=== PATIENT | female | born 1980 | race Caucasian/White ===

== ENCOUNTER 2018-10-17 16:32 | Emergency (ER) | payer OTHER ==
[2018-10-17] MEDS ORDERED: ONDANSETRON HCL 4 MG/2 ML VIAL ONE (16:50)
[2018-10-17] MEDS ORDERED: KETOROLAC TROMETHAMINE 30MG/ML ONE (16:50)
[2018-10-17 17:06] LABS: BASOPHILS % (AUTO) 0.6 % (0.0-5.0); EOSINOPHILS % (AUTO) 1.8 % (0.0-8.0); HEMATOCRIT 42.2 % (36-48); LYMPHOCYTES % (AUTO) 19.5 % (21.0-51.0); MEAN CORPUSCULAR HEMOGLOBIN 29.1 pg (27.0-33.0); MEAN CORPUSCULAR HGB CONC 34.1 g/dL (32.0-36.0); MEAN CORPUSCULAR VOLUME 85.5 fL (79-99); MONOCYTES % (AUTO) 6.8 % (3.0-13.0); NEUTROPHILS % (AUTO) 71.3 % (40.0-77.0); NUCLEATED RED BLOOD CELLS 0.1 % (0.0-0.19); PLATELET COUNT (AUTO) 290 K/uL (130-400); RED BLOOD CELL COUNT(AUTO) 4.93 MIL/uL (4.00-5.50); RED CELL DISTRIBUTION WIDTH 12.6 % (11.0-15.5)
[2018-10-17 17:07] LABS: APPEARANCE,URINE Clear (CLEAR); BILIRUBIN,URINE Negative (NEGATIVE); COLOR,URINE Yellow (YELLOW); GLUCOSE, URINE (UA) Negative (NEGATIVE); KETONES,URINE Trace mg/dL (NEGATIVE); LEUKOCYTE ESTERASE ,URINE Moderate (NEGATIVE); NITRATE,URINE Negative (NEGATIVE); OCCULT BLOOD,URINE Small (NEGATIVE); PH,URINE >=9.0 (5.0-8.0); PROTEIN,URINE Trace (NEGATIVE)
[2018-10-17 17:16] LABS: CREATININE 1.1 mg/dL (0.5-1.5); POTASSIUM 3.7 mmol/L (3.5-5.1)
[2018-10-17 17:20] LABS: ALBUMIN 4.5 g/dL (3.5-5.0); BILIRUBIN,TOTAL 0.4 mg/dL (0.2-1.0); TOTAL PROTEIN, SERUM 7.8 g/dL (6.0-8.3)
[2018-10-17] MEDS ORDERED: MORPHINE SULFATE 4 MG/1ML SYG ONE (17:28)
[2018-10-17 17:34] LABS: BACTERIA,URINE Few /HPF (None Seen)
[2018-10-17] MEDS ORDERED: CEFTRIAXONE SODIUM 1 GM ONE (18:23)
== END 2018-10-17 19:03 | disposition home or self-care (01) ==
LOC: EDH 16:32
DX: N39.0 Urinary tract infection, site not specified (principal); N20.0 Calculus of kidney; Z90.710 Acquired absence of both cervix and uterus
CPT/HCPCS: 36415; 74176; 80053; 81001; 85025; 87077; 87088; 87186; 96374; 96375; 99284; J0696; J1885; J2270; J2405

== ENCOUNTER 2018-12-17 07:33 | Observation (INO) | payer OTHER ==
[2018-12-15 10:37] LABS: BASOPHILS % (AUTO) 1.2 % (0.0-5.0); EOSINOPHILS % (AUTO) 3.7 % (0.0-8.0); HEMATOCRIT 43.4 % (36-48); LYMPHOCYTES % (AUTO) 35.9 % (21.0-51.0); MEAN CORPUSCULAR HEMOGLOBIN 29.1 pg (27.0-33.0); MEAN CORPUSCULAR HGB CONC 33.8 g/dL (32.0-36.0); MEAN CORPUSCULAR VOLUME 85.9 fL (79-99); MONOCYTES % (AUTO) 6.4 % (3.0-13.0); NEUTROPHILS % (AUTO) 52.8 % (40.0-77.0); NUCLEATED RED BLOOD CELLS 0.1 % (0.0-0.19); PLATELET COUNT (AUTO) 279 K/uL (130-400); RED BLOOD CELL COUNT(AUTO) 5.06 MIL/uL (4.00-5.50); RED CELL DISTRIBUTION WIDTH 12.4 % (11.0-15.5); WHITE BLOOD COUNT (AUTO) 6.2 K/uL (4.8-10.8)
[2018-12-15 10:38] VITALS: BP 127/55
[2018-12-15 10:44] LABS: CREATININE 0.8 mg/dL (0.5-1.5); POTASSIUM 4.3 mmol/L (3.5-5.1)
[2018-12-15 11:03] LABS: PARTIAL THROMBOPLASTIN TIME 28.7 SEC (26.3-35.5); PROTHROMBIN TIME 10.5 SEC (9.6-11.6)
--- NOTE | 2018-12-15 17:55 | NUR ---
PER PT TOOK METOPROLOL 25 MG BID --STOPPED [address] HARRY
[2018-12-17] VITALS (10 sets, daily range): BP systolic 117–146; BP diastolic 62–82
[~2018-12-17] VITALS: Ht 162.6 cm; Wt 70.9 kg
[~2018-12-17 07:33] MED LIST: SODIUM CHLORIDE 0.9% 1000ML 1,000 ML IV SCH; THYROID PO
--- NOTE | 2018-12-17 07:55 | NUR ---
Pre-Procedure Received from home via walking accompanied by . AAOx3. Connected to continuous cardiopulmonary monitoring.
--- NOTE | 2018-12-17 14:50 | NUR ---
PROCEDURE TRANSFERRED TO BUSINESS SUPPORT ADMINISTRATOR VIA BED FOR SVT ABLATION.
[2018-12-17] MEDS ORDERED: LIDOCAINE HCL 2% 20ML ONE (14:59)
[2018-12-17] MEDS ORDERED: MIDAZOLAM HCL 1 MG/ML 2ML VIAL ONE (15:20)
[2018-12-17] MEDS ORDERED: MEPERIDINE-PF 25 MG/ML SYG ONE (15:24)
[2018-12-17] MEDS ORDERED: HEPARIN SODIUM 1000UNIT/ML 10ML VIAL ONE (15:56)
[2018-12-17] MEDS ORDERED: ISOPROTERENOL HCL 0.2 MG/ML AMP/VIAL/BAG ONE ×2 (16:23→17:31)
[2018-12-17] MEDS ORDERED: FENTANYL CITRATE PF 50 MCG/1 ML 2ML VIAL ONE (17:59)
[2018-12-17] MEDS ORDERED: ASPIRIN 325MG EC TAB 325 MG TABLET.DR PO SCH (19:45)
[2018-12-17] MEDS ORDERED: ASPI-1012 PO (19:47)
--- NOTE | 2018-12-17 20:00 | NUR ---
Patient arrived from animal laboratory technician. S/P ablation. Dressing to bilateral groin. Groin soft. Pedal pulses palpable. Bedrest over at 2300.
[2018-12-17] MEDS ORDERED: ONDANSETRON HCL 4 MG/2 ML VIAL IV PRN (21:00)
[2018-12-17] MEDS ORDERED: NITROGLYCERIN 0.4 MG SL TAB SL PRN (21:00)
[2018-12-17] MEDS ORDERED: ACETAMINOPHEN 325 MG TAB PO PRN ×2 (21:00)
[2018-12-17] MEDS: FAMOTIDINE 20MG TAB 20 MG TAB PO SCH (21:32)
--- NOTE | 2018-12-17 21:32 | NUR ---
Patient has nausea and vomiting. Jonathan Carroll ordered prn zofran.
[2018-12-18 03:00] VITALS: BP 124/78
[2018-12-18 03:48] LABS: BASOPHILS % (AUTO) 0.4 % (0.0-5.0); EOSINOPHILS % (AUTO) 0.8 % (0.0-8.0); HEMATOCRIT 38.3 % (36-48); LYMPHOCYTES % (AUTO) 21.9 % (21.0-51.0); MEAN CORPUSCULAR HEMOGLOBIN 29.5 pg (27.0-33.0); MEAN CORPUSCULAR HGB CONC 34.9 g/dL (32.0-36.0); MEAN CORPUSCULAR VOLUME 84.7 fL (79-99); MONOCYTES % (AUTO) 5.4 % (3.0-13.0); NEUTROPHILS % (AUTO) 71.5 % (40.0-77.0); PLATELET COUNT (AUTO) 241 K/uL (130-400); RED BLOOD CELL COUNT(AUTO) 4.52 MIL/uL (4.00-5.50); RED CELL DISTRIBUTION WIDTH 12.6 % (11.0-15.5); WHITE BLOOD COUNT (AUTO) 10.4 K/uL (4.8-10.8)
[2018-12-18 03:54] LABS: CREATININE 0.8 mg/dL (0.5-1.5); MAGNESIUM 1.7 mg/dL (1.80-2.40); POTASSIUM 3.9 mmol/L (3.5-5.1)
[2018-12-18] MEDS ORDERED: MAGNESIUM 2GM PREMIX 50ML 50 ML IV PRN (04:30)
[2018-12-18 07:54] VITALS: BP 120/72
[2018-12-18] MEDS ORDERED: ASPIRIN 325MG EC TAB 325 MG TABLET.DR PO SCH (09:00)
[2018-12-18] MEDS: FAMOTIDINE 20MG TAB 20 MG TAB PO SCH (09:04)
[2018-12-18 11:42] VITALS: BP 110/71
[2018-12-18] MEDS ORDERED: ASPI-1012 PO (12:22)
== END 2018-12-18 12:29 | disposition home or self-care (01) ==
LOC: DAH 07:33 → 2DH 07:34
PROVIDERS: ADMIT Internal Medicine; ATTEND Internal Medicine
DX: I47.1 Supraventricular tachycardia (principal); E03.9 Hypothyroidism, unspecified; Q21.1 Atrial septal defect; Z90.710 Acquired absence of both cervix and uterus; Z82.49 Family history of ischemic heart disease and other diseases of the circulatory system; Z79.899 Other long term (current) drug therapy; Z79.01 Long term (current) use of anticoagulants
CPT/HCPCS: 36415 ×2; 80048 ×2; 83735; 84703; 85025 ×2; 85610; 85730; 93005 ×2; 93613; 93621; 93623; 93653; 96365; 96366; 96375; A4606; A4649; C1730 ×3; C1732 ×2; C1893; C1894 ×5; G0378 ×29; J1644 ×2; J2175; J2250; J2405; J3010; J3475; J3490 ×3; J7030; 99156; 99157

== ENCOUNTER → 2023-06-23 | Outpatient (CLI) | payer OTHER ==
[~2023-06-23] MED LIST changes: +ASPI-1012 PO; -SODIUM CHLORIDE 0.9% 1000ML 1,000 ML IV SCH
== END | disposition home or self-care (01) ==
LOC: SHCH 14:58
PROVIDERS: ATTEND Internal Medicine Cardiovascular Disease
DX: I47.10 Supraventricular tachycardia, unspecified (principal)
CPT/HCPCS: 93306